=== PATIENT | female | born 1975 | race Caucasian/White ===

== ENCOUNTER → 2018-06-23 | Outpatient (CLI) | payer BC | LOC: MC.RAD 08:54 | DX: Z12.31 Encounter for screening mammogram for malignant neoplasm of breast (principal) ==

== ENCOUNTER → 2018-08-01 | Outpatient (CLI) | payer BC | LOC: COL.RAD 16:21 → COL.LAB 16:21 | DX: J18.1 Lobar pneumonia, unspecified organism (principal); I80.01 Phlebitis and thrombophlebitis of superficial vessels of right lower extremity | CPT/HCPCS: Q9967 ==

== ENCOUNTER 2020-10-10 14:00 | Outpatient (CLI) | payer BC ==
[2020-10-10] VITALS (8 sets, daily range): BP systolic 140–148; BP diastolic 80–101; PULSE 76–92; TEMP 98.3–98.7
[~2020-10-10] VITALS: Ht 160 cm; Wt 95.5 kg
== END 2020-10-10 18:01 | disposition home or self-care (01) ==
LOC: EUO 14:00
DX: U07.1 COVID-19 (principal)
CPT/HCPCS: J7050